=== PATIENT | male | born 1945 | race Caucasian/White ===

== ENCOUNTER 2016-11-17 15:11 | Inpatient (IN) | payer MEDICARE, OTHER ==
[~2016-11-17 15:11] MED LIST: ASPIRIN EC81 MG PO; ASPIRIN325 MG PO; ATORVASTATIN CA10 M1 PO; CHLORPROMAZINE50 M1 PO; DEPAKOTE500 M1 PO; DEPAKOTE500 MG PO; FEROSUL325 M1 PEG; FISH OIL 1,2001 CAP PO; HYDROCODON-ACE1 EA16 PO; HYDROCODONE-IB1 EACH PO; LIDOCAINE HCL100 ML PO; MIRALAX17 G2 PEG; MULTIVITAMINS1 EAC5 PO; NICOTINE PATCH1 EAC2 TD; OMEPRAZOLE20 M3 PO; PERCOCET 5-3251 EACH PO; PERCOCET 5/3251 TAB PO; PRESERVISION L1 EACH PO; PROTONIX40 M1 PO; RAMIPRIL2.5 M1 PO; TOPROL XL100 M1 PO; TUSSIONEX PENN115 ML PO; TYLENOL325 MG PO; XARELTO15 MG PO; XARELTO20 MG PO; ZANTAC 7575 M1 PO; ZOFRAN ODT8 MG SL; [UNRECOGNIZED DRUG - OTHER] PO
[2016-11-17] MEDS ORDERED: OMEPRAZOLE20 M3 PO (15:56)
[2016-11-17] MEDS ORDERED: DURAGESIC1 EAC1 TOP (15:57)
[2016-11-17] MEDS ORDERED: COMPAZINE10 MG PO (15:57)
[2016-11-17] MEDS ORDERED: NORCO 7.5-3251 EACH PO (15:58)
[2016-11-17] MEDS ORDERED: KEFLEX500 M4 PO (16:00)
[2016-11-17] MEDS ORDERED: XANAX0.5 M1 PO (16:00)
[2016-11-17 16:56] LABS: ANION GAP 12 mmol/L (0-20); BLOOD UREA NITROGEN 15 mg/dl (6-24); CALCIUM 9.3 mg/dl (8.5-10.5); CARBON DIOXIDE-VENOUS 30 mmol/L (22-32); CHLORIDE 97 mmol/l (96-110); CREATININE 0.92 mg/dl (0.60-1.30); GLUCOSE 106 mg/dL (70-110); MAGNESIUM 1.8 mg/dl (1.8-2.6); POTASSIUM 4.1 mmol/L (3.7-5.1); SODIUM 135 mmol/L (135-145); eGFR VALUE FOR BLACK >90 mL/Min
[2016-11-17 17:00] LABS: BASO % 0.4 % (0-2); EOS % 1.2 % (0-7); EOSINOPHIL ABSOLUTE COUNT 0.1 tho/cmm (0.0-0.7); HCT-HEMATOCRIT 29.9 % (36.0-53.5); HGB-HEMOGLOBIN 10.2 gm/dl (13.5-17.0); LYMPH ABSOLUTE COUNT 0.4 tho/cmm (0.8-4.5); MCH (MEAN CORPUSCULAR HGB) 32.2 pg (28.0-32.0); MCHC MEAN CORPUSCULAR HGB CONC 34.1 % (32.0-36.0); MCV (MEAN CELL VOLUME) 94.3 fl (82.0-96.0); MEAN PLATELET VOLUME 8.8 cmc (9.4-12.4); MONO % 9.8 % (0-12); MONOCYTE ABSOLUTE COUNT 0.5 tho/cmm (0.0-1.2); NEUTROPHIL ABSOLUTE COUNT 4.1 tho/cmm (1.6-8.0); NEUTROPHIL-AUTOMATED 4.1 tho/cmm (1.6-8.0); NEUTROPHILS % 81.6 % (40-80); PLATELET COUNT 453 tho/cmm (150-450); RED BLOOD COUNT 3.17 mil/cmm (4.40-5.70); RED CELL DISTRIBUTION WIDTH 13.4 % (12.4-16.4); TSH-THYROID STIMULATING HORM. 0.49 uIU/ml (0.40-3.80)
[2016-11-17 17:15] LABS: ALB/GLOB RATIO 0.6 (0.8-2.0); ALKALINE PHOSPHATASE 59 U/L (33-138); ALT/SGPT 61 U/L (12-78); AMYLASE 55 U/L (20-90); AST/SGOT 51 U/L (10-40); BILIRUBIN,DIRECT <0.1 mg/dl (0.0-0.3); BILIRUBIN,INDIRECT 0.2 mg/dL (0.0-1.0); BILIRUBIN,TOTAL 0.3 mg/dl (0.0-1.5); LIPASE 230 U/L (73-393)
[2016-11-18 04:02] LABS: BASO % 0.8 % (0-2); EOS % 5.2 % (0-7); EOSINOPHIL ABSOLUTE COUNT 0.2 tho/cmm (0.0-0.7); HCT-HEMATOCRIT 24.4 % (36.0-53.5); HGB-HEMOGLOBIN 8.3 gm/dl (13.5-17.0); LYMPH % 10.6 % (20-45); LYMPH ABSOLUTE COUNT 0.4 tho/cmm (0.8-4.5); MCH (MEAN CORPUSCULAR HGB) 31.9 pg (28.0-32.0); MCV (MEAN CELL VOLUME) 93.8 fl (82.0-96.0); MONO % 11.4 % (0-12); MONOCYTE ABSOLUTE COUNT 0.4 tho/cmm (0.0-1.2); NEUTROPHIL ABSOLUTE COUNT 2.7 tho/cmm (1.6-8.0); NEUTROPHIL-AUTOMATED 2.7 tho/cmm (1.6-8.0); PLATELET COUNT 322 tho/cmm (150-450); RED CELL DISTRIBUTION WIDTH 13.2 % (12.4-16.4); WHITE BLOOD COUNT 3.7 tho/cmm (4.0-10.0)
[2016-11-18 04:13] LABS: URINE BILIRUBIN NEGATIVE (NEG); URINE BLOOD NEGATIVE (NEG); URINE GLUCOSE (UA) NEGATIVE (NEG); URINE KETONE NEGATIVE (NEG); URINE LEUKOCYTE ESTERASE NEGATIVE (NEG); URINE NITRITE NEGATIVE (NEG); URINE PROTEIN NEGATIVE (NEG)
[2016-11-18 04:17] LABS: ALB/GLOB RATIO 0.6 (0.8-2.0); ALBUMIN 2.3 g/dl (3.5-5.0); ALKALINE PHOSPHATASE 46 U/L (33-138); ALT/SGPT 40 U/L (12-78); ANION GAP 12 mmol/L (0-20); AST/SGOT 29 U/L (10-40); BILIRUBIN,TOTAL 0.3 mg/dl (0.0-1.5); BLOOD UREA NITROGEN 11 mg/dl (6-24); CALCIUM 8.2 mg/dl (8.5-10.5); CARBON DIOXIDE-VENOUS 26 mmol/L (22-32); CHLORIDE 105 mmol/l (96-110); CREATININE 0.85 mg/dl (0.60-1.30); GLUCOSE 94 mg/dL (70-110); SODIUM 139 mmol/L (135-145); eGFR VALUE FOR BLACK >90 mL/Min
[2016-11-18 04:30] LABS: VALPROIC ACID (DEPAKOTE) <3 ug/ml (50-100)
[2016-11-18 04:33] LABS: URINE APPEARANCE CLEAR; URINE COLOR YELLOW
[2016-11-18 04:34] LABS: URINE EPITHELIAL CELLS 0 /[HPF] (0-10); URINE RBC 0 /[HPF] (0-5); URINE WBC 0 /[HPF] (0-5)
[2016-11-19 06:24] LABS: BASO % 1.2 % (0-2); EOS % 7.5 % (0-7); EOSINOPHIL ABSOLUTE COUNT 0.3 tho/cmm (0.0-0.7); HGB-HEMOGLOBIN 7.6 gm/dl (13.5-17.0); LYMPH % 10.2 % (20-45); LYMPH ABSOLUTE COUNT 0.3 tho/cmm (0.8-4.5); MCH (MEAN CORPUSCULAR HGB) 31.9 pg (28.0-32.0); MCHC MEAN CORPUSCULAR HGB CONC 33.9 % (32.0-36.0); MCV (MEAN CELL VOLUME) 94.1 fl (82.0-96.0); MEAN PLATELET VOLUME 8.2 cmc (9.4-12.4); MONO % 10.8 % (0-12); MONOCYTE ABSOLUTE COUNT 0.4 tho/cmm (0.0-1.2); NEUTROPHIL ABSOLUTE COUNT 2.3 tho/cmm (1.6-8.0); NEUTROPHIL-AUTOMATED 2.3 tho/cmm (1.6-8.0); NEUTROPHILS % 70.3 % (40-80); PLATELET COUNT 328 tho/cmm (150-450); RED BLOOD COUNT 2.38 mil/cmm (4.40-5.70); RED CELL DISTRIBUTION WIDTH 13.6 % (12.4-16.4); WHITE BLOOD COUNT 3.3 tho/cmm (4.0-10.0)
[2016-11-19 06:44] LABS: ALT/SGPT 36 U/L (12-78); ANION GAP 11 mmol/L (0-20); AST/SGOT 27 U/L (10-40); BLOOD UREA NITROGEN 10 mg/dl (6-24); CALCIUM 8.1 mg/dl (8.5-10.5); CARBON DIOXIDE-VENOUS 25 mmol/L (22-32); CHLORIDE 109 mmol/l (96-110); CREATININE 0.76 mg/dl (0.60-1.30); GLUCOSE 89 mg/dL (70-110); POTASSIUM 4.3 mmol/L (3.7-5.1); SODIUM 141 mmol/L (135-145); eGFR VALUE FOR BLACK >90 mL/Min
[2016-11-19 06:46] LABS: ALB/GLOB RATIO 0.6 (0.8-2.0); ALKALINE PHOSPHATASE 41 U/L (33-138); BILIRUBIN,TOTAL 0.2 mg/dl (0.0-1.5)
[2016-11-19 06:53] LABS: HCT-HEMATOCRIT 22.4 % (36.0-53.5)
[2016-11-19] MEDS ORDERED: TYLENOL325 M2 PO (14:40)
[2016-11-19] MEDS ORDERED: MAALOX MAXIMUM355 M1 PO (14:42)
[2016-11-19] MEDS ORDERED: CULTURELLE1 EAC1 PO (14:43)
[2016-11-19] MEDS ORDERED: MILK OF MAGNESIA PO (14:48)
[2017-01-06] MEDS ORDERED: BACTRIM DS TAB1 EAC2 (05:21)
[2017-01-06] MEDS ORDERED: ZOFRAN ODT4 MG PO (07:26)
== END 2016-11-19 15:33 | DRG 315 ==
LOC: 5WE 15:11
PROVIDERS: Internal Medicine Medical Oncology; ADMIT Internal Medicine Medical Oncology
DX: T80.218A Other infection due to central venous catheter, initial encounter (principal); L03.113 Cellulitis of right upper limb; C09.9 Malignant neoplasm of tonsil, unspecified; D64.89 Other specified anemias; E86.0 Dehydration; T85.79XA Infection and inflammatory reaction due to other internal prosthetic devices, implants and grafts, initial encounter; R62.7 Adult failure to thrive; F41.8 Other specified anxiety disorders; R11.2 Nausea with vomiting, unspecified; Z86.711 Personal history of pulmonary embolism; K21.9 Gastro-esophageal reflux disease without esophagitis; N18.9 Chronic kidney disease, unspecified; Z87.891 Personal history of nicotine dependence
CPT/HCPCS: G8978-GP-CI; G8979-GP-CH; G8980-GP-CH; J0692; J0780; J1650; J2060; J2270; J2405; J7030; J7999